=== PATIENT | female | born 1980 | race Two or more races ===

== ENCOUNTER 2021-03-29 08:50 | Day surgery (SDC) | payer OTHER ==
[2021-03-29] MEDS ORDERED: PERCOCET 5-3251 EACH PO (12:39)
== END 2021-03-29 17:30 | disposition home or self-care (01) ==
LOC: CIR.AMB 08:50
PROVIDERS: ATTEND Obstetrics & Gynecology Gynecology
DX: Z30.2 Encounter for sterilization (principal); Z20.822 Contact with and (suspected) exposure to COVID-19